=== PATIENT | male | born 1990 | race African-American/Black ===

== ENCOUNTER 2017-07-04 15:49 | Emergency (ER) | payer OTHER ==
[~2017-07-04] VITALS: Ht 188 cm; Wt 116.6 kg
[2017-07-04 15:58] VITALS: TEMP 37.3; Ht 188 cm; Wt 116.6 kg
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
[2017-07-04] MEDS ORDERED: MoRPHine SULFATE 4 MG/ML 1 ML CARP\\VIAL IV STA ×2 (17:20→17:30)
[2017-07-04] MEDS ORDERED: ONDANSETRON INJ 2 MG/ML 2 ML VIAL IV STA ×2 (17:20→17:30)
[2017-07-04 17:23] LABS: BASO % 0.2 %; BASO ABS # 0.02 K/uL (0-0.2); COMPLETE YES; EOS % 0.2 %; HEMATOCRIT 48.9 % (42-52); IG% 0.3 %; LYMPH % 10.2 %; LYMPH ABS # 1.02 K/uL (1.2-3.4); MEAN CELL VOLUME 91.9 fL (80-100); MEAN CORPUSCULAR HGB CONC 34.8 g/dl (32-36); MEAN PLATELET VOLUME 12.2 fL (7.4-10.4); MONO % 6.3 %; NEUT % 82.8 %; PLATELET COUNT 175 K/uL (130-400); RED BLOOD COUNT 5.32 M/uL (4.7-6.1); WHITE BLOOD COUNT 10.02 K/uL (4.8-10.8)
[2017-07-04] MEDS ORDERED: SODIUM CHLORIDE 0.9% 1000ML 1,000 ML IV SCH (17:30)
[2017-07-04 17:45] VITALS: BP 115/71; PULSE 61; O2SAT 100
[2017-07-04 17:53] LABS: BUN/CREATININE RATIO 12.2 (10-20); CALCIUM 9.6 mg/dl (8.5-10.1); CREATININE 1.1 mg/dl (0.60-1.40); POTASSIUM 3.6 mmol/L (3.5-5.1)
[2017-07-04] MEDS ORDERED: CICL160A PO (17:53)
[2017-07-04] MEDS ORDERED: VNTHFA/IN INH (17:53)
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
== END 2017-07-04 18:18 | disposition home or self-care (01) ==
LOC: EDBD 15:49 → C.EDA 15:52
DX: S09.90XA Unspecified injury of head, initial encounter (principal); Y00.XXXA Assault by blunt object, initial encounter; Y92.149 Unspecified place in prison as the place of occurrence of the external cause; J45.909 Unspecified asthma, uncomplicated; Z79.899 Other long term (current) drug therapy